=== PATIENT | male | born 1980 | race Hispanic/Latino ===

== ENCOUNTER 2016-12-31 05:06 | Emergency (ER) | payer OTHER ==
[2016-12-31 05:07] VITALS: BMI 30.3
[2016-12-31] MEDS ORDERED: Bacitracin 500 Units/gm Oint Foilpak UD ONE (05:53)
--- NOTE | 2016-12-31 05:55 | C.PDOC ---
History Of Present Illness <Ernestina Luong - Last Filed: 12/31/16 06:09> <Jose R Farrell - Last Filed: 12/31/16 06:59> 36 year old patient presents to the ED complaining of feeling anxious and sleepy. Patient states he was "slipped" a pill that made him hallucinate and feel anxious. Patient denies any alcohol or drug use recently. Patient also denies fever, shortness of breath, nausea, vomiting, depression, suicidal or homicidal ideation. (Ernestina uLong) History Per: Patient History/Exam Limitations: no limitations Onset/Duration Of Symptoms: Other Current Symptoms Are (Timing): Still Present Suicide/Self Injury Attempted (Context): None Modifying Factor(s): None Severity: None Pain Scale Rating Of: 0 Associated Symptoms: Anxiety Recent travel outside of the [place]: No <Ernestina Luong - Last Filed: 12/31/16 06:09> <Jose R Farrell - Last Filed: 12/31/16 06:59> Time Seen by Provider: 12/31/16 05:30 Chief Complaint (Nursing): Anxiety Past Medical History Reviewed: Historical Data, Nursing Documentation, Vital Signs - Medical History PMH: Gastritis Surgical History: Cholecystectomy Family History: States: Unknown Family Hx - Social History Hx Tobacco Use: Yes Hx Alcohol Use: Yes Hx Substance Use: Yes - Immunization History Hx Tetanus Toxoid Vaccination: No <Ernestina Luong - Last Filed: 12/31/16 06:09> Review Of Systems Except As Marked, All Systems Reviewed And Found Negative. Respiratory: Negative for: Shortness of Breath Gastrointestinal: Negative for: Nausea, Vomiting Psych: Positive for: Anxiety. Negative for: Depression, Suicidal ideation <Ernestina Luong - Last Filed: 12/31/16 06:09> Physical Exam - Physical Exam Appears: Non-toxic, Other (appears groggy) Skin: Normal Color, Warm, Dry Head: Atraumatic, Normacephalic Eye(s): bilateral: Normal Inspection Neck: Normal ROM, Supple Chest: Symmetrical Cardiovascular: Rhythm Regular (tachycardic) Respiratory: No Accessory Muscle Use Extremity: Normal ROM Neurological/Psych: Oriented x3 Gait: Steady <Ernestina Luong - Last Filed: 12/31/16 06:09> ED Course And Treatment - Laboratory Results Result Diagrams: 12/31/16 05:51 O2 Sat by Pulse Oximetry: 93 (room air) Pulse Ox Interpretation: Abnormal Progress Note: Plan: Labs <Ernestina Luong - Last Filed: 12/31/16 06:09> - Laboratory Results Result Diagrams: 12/31/16 05:51 12/31/16 05:51 <Jose R Farrell - Last Filed: 12/31/16 06:59> Disposition <Ernestina Luong - Last Filed: 12/31/16 06:09> - Disposition Disposition Time: 06:59 <Jose R Farrell - Last Filed: 12/31/16 06:59> - Disposition Condition: STABLE - Clinical Impression Clinical Impression: Anxiety - PA / LITERARY WRITER / Resident Statement MD/DO has reviewed & agrees with the documentation as recorded. - Scribe Statement The provider has reviewed the documentation as recorded by the Scribe <Ernestina Luong - Last Filed: 12/31/16 06:09> <Jose R Farrell - Last Filed: 12/31/16 06:59> - Scribe Statement Shahrzad Carbone All medical record entries made by the Scribe were at my direction and personally dictated by me. I have reviewed the chart and agree that the record accurately reflects my personal performance of the history, physical exam, medical decision making, and the department course for this patient. I have also personally directed, reviewed, and agree with the discharge instructions and disposition. (Ernestina Luong) Physician Patient Turnover Patient Signed Over To: Gerri Yost Handoff Comments: pending crisis eval and disposition <Jose R Farrell - Last Filed: 12/31/16 06:59>
[2016-12-31 06:00] LABS: BASO # 0.3 K/uL (0.0-0.2); BASO % 1.8 % (0.0-2.0); EOS # 0.1 K/uL (0.0-0.7); EOS % 0.5 % (0.0-4.0); HEMATOCRIT 35.9 % (35.0-51.0); LYMPH # 1.5 K/uL (1.0-4.3); LYMPH % 9.5 % (20.0-40.0); MEAN CELL VOLUME 94.2 fL (80.0-94.0); MEAN CORPUSCULAR HEMOGLOBIN 31.1 pg (27.0-31.0); MEAN PLATELET VOLUME 7.2 fL (7.2-11.7); MONO # 1.6 K/uL (0.0-0.8); MONO % 10.1 % (0.0-10.0); PLATELET COUNT 325 K/uL (130-400); RED CELL DISTRIBUTION WIDTH 13.2 % (11.5-14.5); WHITE BLOOD COUNT 15.4 K/uL (4.8-10.8)
[2016-12-31 06:09] LABS: CHLORIDE 95 mmol/L (98-107); POTASSIUM 3.3 mmol/L (3.6-5.2); SODIUM 134 mmol/L (132-148)
[2016-12-31 06:11] LABS: BILIRUBIN,TOTAL 0.8 mg/dL (0.2-1.3); CARBON DIOXIDE 26 mmol/L (22-30); GFR AFRICAN-AMERICAN > 60
[2016-12-31 06:12] LABS: ALB/GLOB RATIO 1.3 (1.0-2.1); ALKALINE PHOSPHATASE 65 U/L (38-126); ALT/SGPT 25 U/L (21-72); AST/SGOT 39 U/L (17-59); BLOOD UREA NITROGEN 7 mg/dL (9-20); CALCIUM 8.8 mg/dl (8.6-10.4); GLUCOSE,RANDOM 118 mg/dL (75-110); TOTAL PROTEIN 7.9 g/dL (6.3-8.3)
[2016-12-31 06:13] LABS: ALCOHOL SERUM < 10 mg/dl (0-10)
[2016-12-31 06:59] LABS: NEUTROPHIL 78 % (50-75); REACTIVE LYMPHOCYTES 4 % (0-0); TOTAL CELLS COUNTED 100
[2016-12-31 07:00] LABS: LARGE PLATELETS PRESENT
[2016-12-31 08:02] LABS: RBC URINE < 1 /hpf (0-3); URINE BACTERIA RARE (<OCC); URINE BILIRUBIN NEGATIVE (NEGATIVE); URINE BLOOD 1+ (NEGATIVE); URINE COLOR Straw (YELLOW); URINE GLUCOSE (UA) NORMAL (Normal); URINE KETONE NEGATIVE (NEGATIVE); URINE LEUKOCYTE ESTERASE NEG Leu/uL (Negative); URINE PROTEIN NEGATIVE (NEGATIVE); URINE UROBILINOGEN NORMAL mg/dL (0.2-1.0); WBC URINE 1 /hpf (0-5)
[2016-12-31 08:14] VITALS: BP 144/87; PULSE 111; RESP 17; TEMP 9709; O2SAT 99
== END 2016-12-31 08:34 | disposition home or self-care (01) ==
LOC: C.ER 05:06
DX: F41.9 Anxiety disorder, unspecified (principal); F39 Unspecified mood [affective] disorder
CPT/HCPCS: 80053; 81001; 85025; 99283; G0480